=== PATIENT | male | born 1975 | race African-American/Black ===

== ENCOUNTER 2023-06-21 13:13 | Emergency (ER) | payer MEDICAID, OTHER ==
[~2023-06-21] VITALS: Ht 177.8 cm; Wt 72.7 kg
--- NOTE | 2023-06-21 13:50 | NUR ---
AWAITING MSE FROM [facility].
[2023-06-21 14:31] LABS: BASOPHILS % (AUTO) 0.3 % (0-1); EOSINOPHILS % (AUTO) 0.1 % (0-6); HEMATOCRIT 46.5 % (42.0-52.0); HEMOGLOBIN 15.6 g/dl (14.0-17.9); LYMPHOCYTES # (AUTO) 1.4 X10'3 (1.1-4.8); LYMPHOCYTES % (AUTO) 9.7 % (21-51); MEAN CORPUSCULAR HEMOGLOBIN 31.6 PG (27.0-31.0); MEAN CORPUSCULAR HGB CONC 33.6 g/dL (33.0-36.5); MEAN CORPUSCULAR VOLUME 94.1 FL (78-98); MEAN PLATELET VOLUME 7.9 FL (7.4-10.4); MONOCYTES # (AUTO) 0.8 X10'3 (0-0.9); MONOCYTES % (AUTO) 5.4 % (2-12); NEUTROPHILS # (AUTO) 12.5 X10'3 (1.8-7.7); NEUTROPHILS % (AUTO) 84.5 % (42-75); PLATELET COUNT 402 X10'3 (140-440); RED BLOOD COUNT 4.94 X10'6 (4.70-6.10); RED CELL DISTRIBUTION WIDTH 13.4 % (11.5-14.5); WHITE BLOOD COUNT 14.7 X10'3 (4.5-11.0)
[2023-06-21] MEDS ORDERED: ondansetron/PF 4mg/2ml inj IV ONE (14:40)
[2023-06-21] MEDS: normal saline 1000ml 1,000 ML IV SCH ×2 (14:40→19:44)
[2023-06-21 14:51] LABS: ALANINE AMINOTRANSFERASE 25 U/L (12-78); ALBUMIN 4.3 G/DL (3.4-5.0); ALBUMIN/GLOBULIN RATIO 1.2 (1.1-1.5); ALKALINE PHOSPHATASE 61 IU/L (46-116); ANION GAP 11 (8-16); ASPARTATE AMINO TRANSFERASE 32 U/L (10-37); BILIRUBIN,TOTAL 0.9 MG/DL (0.1-1.0); BLOOD UREA NITROGEN 25 MG/DL (7-18); BUN/CREATININE RATIO 23.4 (10.0-20.0); CHLORIDE 102 MMOL/L (99-107); CREATININE 1.07 MG/DL (0.60-1.10); GLUCOSE 165 MG/DL (70-104); LIPASE 17 U/L (16-77); POTASSIUM 3.3 MMOL/L (3.5-5.1); SODIUM 143 MMOL/L (135-145); TOTAL CARBON DIOXIDE 29.6 MMOL/L (24-32); TOTAL PROTEIN 7.8 G/DL (6.4-8.2); eCRCL 87 ML/MIN; eGFR 74 ML/MIN
[2023-06-21] MEDS ORDERED: iohexol 300mg/ml 100ml inj. ONE (16:27)
[2023-06-21] MEDS ORDERED: HYDROmorphone 1 mg/ml syringe IV ONE ×2 (17:25→21:05)
[2023-06-21 21:10] LABS: BILIRUBIN,URINE NEGATIVE (Neg); CLARITY,URINE CLEAR (Clear); COLOR,URINE YELLOW (Yellow); GLUCOSE, URINE 100 mg/dl (Neg); KETONES,URINE TRACE mg/dl (Neg); LEUKOCYTE ESTERASE ,URINE NEGATIVE (Neg); NITRITES, URINE NEGATIVE (Neg); OCCULT BLOOD,URINE TRACE-INTACT (Neg); PH,URINE 5.5 (4.8-8.0); PROTEIN,URINE 30 mg/dl (Neg); UA COLLECTION TYPE CLN CATCH MIDSTREAM; UROBILINOGEN,URINE 0.2 E.U/dL (0.2-1.0)
[2023-06-21 21:11] LABS: URINE AMPHETAMINE SCREEN NEGATIVE (Neg); URINE BARBITUATE SCREEN NEGATIVE (Neg); URINE BENZODIAZEPINES SCREEN NEGATIVE (Neg); URINE CANNABINOID SCREEN POSITIVE (Neg); URINE COCAINE SCREEN POSITIVE (Neg); URINE METHADONE SCREEN NEGATIVE (Neg); URINE OPIATE SCREEN POSITIVE (Neg); URINE PHENCYCLIDINE SCREEN NEGATIVE (Neg)
[2023-06-21 21:28] LABS: HYALINE CASTS 0-3 /LPF (NEGATIVE); MUCUS STRANDS MANY /LPF (Neg); SQUAMOUS EPITHELIAL CELL,UR FEW /LPF (FEW)
[2023-06-21 21:29] LABS: BACTERIA,URINE NONE SEEN /HPF (Neg); RBC,URINE 0-2 /HPF (0-2); WBC,URINE 0-4 /HPF (0-4)
[2023-06-21 22:53] VITALS: BP 113/64; PULSE 84; RESP 18; TEMP 98.3; O2SAT 99
== END 2023-06-21 22:55 | disposition home or self-care (01) ==
LOC: ER 13:14
DX: R10.9 Unspecified abdominal pain (principal); R11.2 Nausea with vomiting, unspecified; E11.9 Type 2 diabetes mellitus without complications
CPT/HCPCS: 36415; 74177; 80053; 80305; 81001; 83605; 83690; 85025; 96361; 96374; 96375; 99285; J1170; J2405; J3490; J7030; Q9967

== ENCOUNTER 2023-09-04 11:20 | Day surgery (SDC) | payer MEDICAID ==
[~2023-09-04] VITALS: Ht 177.8 cm; Wt 77.3 kg
[2023-09-04] MEDS ORDERED: [UNRECOGNIZED DRUG - OTHER] (11:40)
[2023-09-04] MEDS ORDERED: LISI5TAB22 PO (11:41)
[2023-09-04] MEDS ORDERED: INSU200I (11:42)
[2023-09-04] MEDS ORDERED: ONDA-103 PO (11:45)
[2023-09-04] MEDS ORDERED: LINA145C PO (11:46)
[2023-09-04] MEDS ORDERED: LANTUS SUBCUT (11:47)
[2023-09-04] MEDS ORDERED: INSU100I31 (11:48)
[2023-09-04] MEDS ORDERED: ATOR40TA71 PO (11:48)
[2023-09-04 11:50] VITALS: BP 145/98; PULSE 89; RESP 14
[2023-09-04] MEDS ORDERED: LIDOcaine Viscous 15ml cup ONE (15:20)
[2023-09-04] MEDS ORDERED: MIDAZolam 1 MG/ML 5ML VIAL ONE (15:35)
[2023-09-04] MEDS ORDERED: fentaNYL/PF 50MCG/1 ML 2ML syringe ONE (15:35)
[2023-09-04 16:22] VITALS: BP 86/57; PULSE 79; RESP 14; O2SAT 100
[2023-09-04 16:32] VITALS: BP 116/83; PULSE 78; RESP 13; O2SAT 100
[2023-09-04 16:42] VITALS: BP 129/76; PULSE 80; RESP 11; O2SAT 100
[2023-09-04 16:52] VITALS: BP 123/81; PULSE 79; RESP 17; O2SAT 100
== END 2023-09-04 17:00 | disposition home or self-care (01) ==
LOC: GI LAB 11:20
PROVIDERS: ATTEND Internal Medicine Gastroenterology
DX: R10.30 Lower abdominal pain, unspecified (principal); R11.2 Nausea with vomiting, unspecified; D50.9 Iron deficiency anemia, unspecified; E10.43 Type 1 diabetes mellitus with diabetic autonomic (poly)neuropathy; K31.84 Gastroparesis; E78.5 Hyperlipidemia, unspecified; Z79.899 Other long term (current) drug therapy
CPT/HCPCS: 43236; 43239; 43245; 45330; 99152; 99153; C1726; J0585; J2250; J3010; J7030; Z7512; 43243; A4620